=== PATIENT | female | born 1985 ===

== ENCOUNTER 2018-05-21 16:05 | Inpatient (IN) | payer OTHER ==
[~2018-05-21] VITALS: Ht 157.5 cm; Wt 71.7 kg
[2018-05-21] MEDS ORDERED: PRENATABS RX T1 EACH PO (16:08)
== END 2018-05-23 12:47 | disposition home or self-care (01) | DRG 807 ==
LOC: LDR 16:05 → OB/GYN 19:49
PROC: 10E0XZZ Delivery of Products of Conception, External Approach (ICD-10-PCS; principal; 2018-05-21)
PROC: 0KQM0ZZ Repair Perineum Muscle, Open Approach (ICD-10-PCS; 2018-05-21)
PROC: 4A1HXCZ Monitoring of Products of Conception, Cardiac Rate, External Approach (ICD-10-PCS; 2018-05-21)
PROC: 4A033R1 Measurement of Arterial Saturation, Peripheral, Percutaneous Approach (ICD-10-PCS; 2018-05-21)
DX: O70.1 Second degree perineal laceration during delivery (principal); Z37.0 Single live birth; Z3A.38 38 weeks gestation of pregnancy

== ENCOUNTER 2021-03-19 16:14 | Inpatient (IN) | payer OTHER ==
[~2021-03-19] VITALS: Ht 154.9 cm; Wt 78.0 kg
[~2021-03-19 16:14] MED LIST: PRENATABS RX T1 EACH PO
== END 2021-03-21 13:19 | disposition home or self-care (01) | DRG 807 ==
LOC: OB/GYN 16:14 → LDR 16:14 → OB/GYN 23:58
PROVIDERS: ADMIT Obstetrics & Gynecology; ATTEND Obstetrics & Gynecology
PROC: 10E0XZZ Delivery of Products of Conception, External Approach (ICD-10-PCS; principal; 2021-03-19)
PROC: 10907ZC Drainage of Amniotic Fluid, Therapeutic from Products of Conception, Via Natural or Artificial Opening (ICD-10-PCS; 2021-03-19)
PROC: 4A1HXFZ Monitoring of Products of Conception, Cardiac Rhythm, External Approach (ICD-10-PCS; 2021-03-19)
DX: O99.824 Streptococcus B carrier state complicating childbirth (principal); Z37.0 Single live birth; Z3A.39 39 weeks gestation of pregnancy; Z20.822 Contact with and (suspected) exposure to COVID-19

== ENCOUNTER 2021-04-10 08:15 | Outpatient (CLI) | payer OTHER | END 2021-04-10 08:25 | disposition home or self-care (01) | LOC: PPH VACUNA 08:15 | PROVIDERS: ATTEND Emergency Medicine Pediatric Emergency Medicine | DX: Z23 Encounter for immunization (principal) ==

== ENCOUNTER 2021-05-02 08:00 | Outpatient (CLI) | payer OTHER | END 2021-05-02 08:30 | disposition home or self-care (01) | LOC: PPH VACUNA 08:00 | PROVIDERS: ATTEND Emergency Medicine Pediatric Emergency Medicine | DX: Z23 Encounter for immunization (principal) ==